=== PATIENT | female | born 1950 | race Caucasian/White ===

== ENCOUNTER → 2018-01-08 | Outpatient (CLI) | payer MEDICARE, OTHER ==
[~2018-01-08] MED LIST: ALANINE; ANAS1 PO; ASPI81EC PO; BYSTOLIC PO; CEPH500 PO; CHOL10002 PO; DILT120 PO; DOXY100 PO; ELIQUIS2.5 MG PO; ESTR.625 PO; HYDACE5 PO; IBRANCE125 MG; Keflex500 MG PO; LETR2.5 PO; LISHYD2012 PO; LISHYD2025 PO; LIVALO; LIVALO1 MG PO; LOVA20 PO; MELO7.5 PO; METF500 PO; NEBI5 PO; OLAN10 PO; OMEP20ER PO; OXYB5 PO; POTA10T PO; POTCIT5 PO; PRAV40 PO; TRAZ50 PO; VITAMIN D PO; Venlafaxine HCl75 MG PO; WARF5 PO; Zofran Odt4 MG SL
[2018-01-08 19:13] LABS: BASOPHILS PERCENT AUTO 0 % (0-2); EOSINOPHILS ABSOLUTE AUTO 0.01 K/mm3 (0.00-0.68); EOSINOPHILS PERCENT AUTO 0 % (0-6); Hematocrit 33.5 % (33.0-51.0); Hemoglobin 11.1 g/dL (11.5-16.0); IMMATURE GRAN ABSOLUTE AUTO 0.01 K/mm3 (0.00-0.10); IMMATURE GRAN PERCENT AUTO 0 % (0-1); LYMPHOCYTES ABSOLUTE AUTO 1.69 K/mm3 (0.84-5.20); LYMPHOCYTES PERCENT AUTO 49 % (21-46); MONOCYTES ABSOLUTE AUTO 0.58 K/mm3 (0.16-1.47); MONOCYTES PERCENT AUTO 17 % (4-13); Mean Corpuscular HGB 35.8 pg (26.0-34.0); Mean Corpuscular HGB Conc 33.1 g/dL (31.5-36.5); Mean Platelet Volume 10.2 fL (9.1-12.4); NEUTROPHILS ABSOLUTE AUTO 1.16 K/mm3 (1.96-9.15); NEUTROPHILS PERCENT AUTO 34 % (41-73); Platelet Count 208 K/mm3 (150-400); RDW Coefficient Variation 14.1 % (11.7-14.2); RDW Standard Deviation 56.3 fL (35.1-46.3); White Blood Cell Count 3.45 K/mm3 (4.00-11.30)
[2018-01-08 19:14] LABS: Mean Corpuscular Volume 108 fL (80-100)
[2018-01-08 19:21] LABS: Bun/Creatinine Ratio 10.9 (12.0-20.0); Calcium, Blood 8.5 mg/dL (8.5-10.1); Creatinine, Blood 1.01 mg/dL (0.40-1.00); Potassium, Blood 4.2 mmol/L (3.5-5.5)
== END | disposition home or self-care (01) ==
LOC: LAB SHORT 16:40 → LAB 16:40
PROVIDERS: Physician Assistant
DX: I48.2 Chronic atrial fibrillation (principal); I10 Essential (primary) hypertension
CPT/HCPCS: 80048; 85025

== ENCOUNTER 2018-05-17 18:39 | Inpatient (IN) | payer MEDICARE, OTHER ==
[~2018-05-17] VITALS: Ht 172.7 cm; Wt 88.0 kg
[~2018-05-17 18:39] MED LIST changes: +METF500C PO; -OMEP20ER PO; +OMEPRAZOLE MAGN20 MG PO
[2018-05-17 19:04] LABS: BASOPHILS PERCENT AUTO 0 % (0-2); EOSINOPHILS ABSOLUTE AUTO 0.01 K/mm3 (0.00-0.68); EOSINOPHILS PERCENT AUTO 0 % (0-6); Hematocrit 35.7 % (33.0-51.0); Hemoglobin 11.8 g/dL (11.5-16.0); IMMATURE GRAN ABSOLUTE AUTO 0.03 K/mm3 (0.00-0.10); IMMATURE GRAN PERCENT AUTO 1 % (0-1); LYMPHOCYTES ABSOLUTE AUTO 0.95 K/mm3 (0.84-5.20); LYMPHOCYTES PERCENT AUTO 15 % (21-46); MONOCYTES ABSOLUTE AUTO 1.08 K/mm3 (0.16-1.47); MONOCYTES PERCENT AUTO 17 % (4-13); Mean Corpuscular HGB 34.3 pg (26.0-34.0); Mean Corpuscular HGB Conc 33.1 g/dL (31.5-36.5); Mean Corpuscular Volume 104 fL (80-100); Mean Platelet Volume 10.8 fL (9.1-12.4); NEUTROPHILS ABSOLUTE AUTO 4.41 K/mm3 (1.96-9.15); NEUTROPHILS PERCENT AUTO 68 % (41-73); Platelet Count 141 K/mm3 (150-400); RDW Coefficient Variation 13.7 % (11.7-14.2); RDW Standard Deviation 52.9 fL (35.1-46.3); Red Blood Cell Count 3.44 M/mm3 (3.80-5.20); White Blood Cell Count 6.48 K/mm3 (4.00-11.30)
[2018-05-17 19:19] LABS: Alanine Aminotransfer (ALT/SGP 51 U/L (12-78); Albumin, Blood 3.6 g/dL (3.4-5.0); Albumin/Globulin Ratio 0.9 (0.8-1.8); Alk Phos 82 U/L (50-136); Anion Gap 10 mmol/L (6-16); Aspartate Aminotrans (AST/SGOT 116 U/L (12-37); Bilirubin, Total 0.5 mg/dL (0.1-1.0); Blood Urea Nitrogen 11 mg/dL (8-24); Bun/Creatinine Ratio 11.2 (12.0-20.0); CO2, Blood 21 mmol/L (21-32); Calcium, Blood 9.2 mg/dL (8.5-10.1); Chloride, Blood 106 mmol/L (98-108); Creatinine, Blood 0.98 mg/dL (0.40-1.00); Glomerular Filtration Rate >60 (60-); Glucose, Blood 116 mg/dL (70-99); Potassium, Blood 4.2 mmol/L (3.5-5.5); Sodium, Blood 137 mmol/L (136-145); Total Protein, Blood 7.6 g/dL (6.4-8.2); Troponin I 0.136 ng/mL (0.000-0.040)
[2018-05-17 21:47] LABS: Digoxin (Lanoxin) 0.75 ug/mL (0.80-2.00)
[2018-05-18 07:19] LABS: Hematocrit 34.6 % (33.0-51.0); Hemoglobin 11.2 g/dL (11.5-16.0); Mean Corpuscular HGB 34.3 pg (26.0-34.0); Mean Corpuscular HGB Conc 32.4 g/dL (31.5-36.5); Mean Corpuscular Volume 106 fL (80-100); Mean Platelet Volume 10.5 fL (9.1-12.4); Platelet Count 131 K/mm3 (150-400); RDW Coefficient Variation 13.7 % (11.7-14.2); RDW Standard Deviation 53.2 fL (35.1-46.3); Red Blood Cell Count 3.27 M/mm3 (3.80-5.20); White Blood Cell Count 5.34 K/mm3 (4.00-11.30)
[2018-05-18 07:30] LABS: Calcium, Blood 8.9 mg/dL (8.5-10.1); Potassium, Blood 4.6 mmol/L (3.5-5.5)
[2018-05-19] MEDS ORDERED: ASPI81CH PO (16:46)
== END 2018-05-19 18:48 | disposition home or self-care (01) | DRG 309 ==
LOC: ER 18:39 → PCU 18:40 → ER 18:40 → PCU 21:02 → MEDS 21:10 → ER 21:10 → PCU 22:04 → MEDS 22:04 → PCU 05-19 18:48
PROVIDERS: Emergency Medicine; Nurse Practitioner Acute Care
DX: I48.0 Paroxysmal atrial fibrillation (principal); C78.7 Secondary malignant neoplasm of liver and intrahepatic bile duct; E87.2 Acidosis; D69.6 Thrombocytopenia, unspecified; C50.919 Malignant neoplasm of unspecified site of unspecified female breast; K52.9 Noninfective gastroenteritis and colitis, unspecified; E11.9 Type 2 diabetes mellitus without complications; E03.9 Hypothyroidism, unspecified; I10 Essential (primary) hypertension; K21.9 Gastro-esophageal reflux disease without esophagitis; E78.5 Hyperlipidemia, unspecified; E78.00 Pure hypercholesterolemia, unspecified; F32.9 Major depressive disorder, single episode, unspecified; N32.81 Overactive bladder; N39.3 Stress incontinence (female) (male); G47.00 Insomnia, unspecified; Z85.3 Personal history of malignant neoplasm of breast; Z79.01 Long term (current) use of anticoagulants; Z79.84 Long term (current) use of oral hypoglycemic drugs; Z79.899 Other long term (current) drug therapy; Z88.8 Allergy status to other drugs, medicaments and biological substances
CPT/HCPCS: 36415; 71046; 78452; 80048; 80053; 80162; 82947; 83735; 83880; 84443; 84484; 85025; 85027; 85730; 93005; 93010; 93017; 93306; 96374; 99285-25; A9500; J0706; J1644; J2405; J2785; J7040

== ENCOUNTER → 2018-05-29 | Outpatient (CLI) | payer MEDICARE, OTHER ==
[~2018-05-29] MED LIST changes: +ASPI81CH PO; +AZIT500 PO; +DIGOX125 MCG PO; +EXEM25 PO; +FURO20 PO; +LIVALO4 MG PO; +Micro-K10 MEQ PO; +ONDA4ODT MM
== END ==
LOC: LAB SHORT 13:45 → LAB UCHC 13:45
DX: N39.0 Urinary tract infection, site not specified (principal)
CPT/HCPCS: 87077; 87086; 87186

== ENCOUNTER 2018-07-06 16:37 | Inpatient (IN) | payer MEDICARE, OTHER ==
[~2018-07-06] VITALS: Ht 172.7 cm; Wt 87.5 kg
[~2018-07-06 16:37] MED LIST changes: -AZIT500 PO; -FURO20 PO; -Micro-K10 MEQ PO
[2018-07-06 17:11] LABS: BASOPHILS PERCENT AUTO 0 % (0-2); EOSINOPHILS ABSOLUTE AUTO 0.01 K/mm3 (0.00-0.68); EOSINOPHILS PERCENT AUTO 0 % (0-6); Hematocrit 32.8 % (33.0-51.0); Hemoglobin 10.5 g/dL (11.5-16.0); IMMATURE GRAN ABSOLUTE AUTO 0.01 K/mm3 (0.00-0.10); IMMATURE GRAN PERCENT AUTO 0 % (0-1); LYMPHOCYTES ABSOLUTE AUTO 0.81 K/mm3 (0.84-5.20); LYMPHOCYTES PERCENT AUTO 13 % (21-46); MONOCYTES ABSOLUTE AUTO 0.83 K/mm3 (0.16-1.47); MONOCYTES PERCENT AUTO 13 % (4-13); Mean Corpuscular HGB 32.3 pg (26.0-34.0); Mean Corpuscular Volume 101 fL (80-100); Mean Platelet Volume 10.3 fL (9.1-12.4); NEUTROPHILS ABSOLUTE AUTO 4.59 K/mm3 (1.96-9.15); NEUTROPHILS PERCENT AUTO 73 % (41-73); Platelet Count 186 K/mm3 (150-400); RDW Coefficient Variation 13.5 % (11.7-14.2); RDW Standard Deviation 49.4 fL (35.1-46.3); Red Blood Cell Count 3.25 M/mm3 (3.80-5.20); White Blood Cell Count 6.25 K/mm3 (4.00-11.30)
[2018-07-06 17:35] LABS: Alanine Aminotransfer (ALT/SGP 48 U/L (12-78); Albumin, Blood 3.1 g/dL (3.4-5.0); Albumin/Globulin Ratio 0.9 (0.8-1.8); Alk Phos 95 U/L (50-136); Anion Gap 10 mmol/L (6-16); Aspartate Aminotrans (AST/SGOT 119 U/L (12-37); Bilirubin, Total 0.6 mg/dL (0.1-1.0); Blood Urea Nitrogen 9 mg/dL (8-24); Bun/Creatinine Ratio 10.4 (12.0-20.0); CO2, Blood 23 mmol/L (21-32); Calcium, Blood 8.1 mg/dL (8.5-10.1); Chloride, Blood 109 mmol/L (98-108); Creatinine, Blood 0.86 mg/dL (0.40-1.00); Globulin, Blood 3.6 g/dL (2.2-4.0); Glomerular Filtration Rate >60 (60-); Glucose, Blood 149 mg/dL (70-99); Potassium, Blood 3.5 mmol/L (3.5-5.5); Sodium, Blood 142 mmol/L (136-145); Total Protein, Blood 6.7 g/dL (6.4-8.2); Troponin I 0.025 ng/mL (0.000-0.040)
[2018-07-06 20:28] LABS: Thyroid Stimulating Hormone 1.74 uIU/mL (0.360-4.800)
[2018-07-06 20:30] LABS: Digoxin (Lanoxin) 0.59 ug/mL (0.80-2.00)
[2018-07-06 21:05] LABS: Percent Saturation 15.5 % (15.0-50.0)
[2018-07-06] MEDS ORDERED: OXYB5 PO (21:44)
--- NOTE | 2018-07-07 04:45 | NUR ---
NOC SHIFT SUMMARY THIS PATIENT WAS ADMITTED DURING THE NIGHT FOR HX OF BREAST CANCER WITH METS TO LIVER AND POSSIBLE PNEUMONIA. SHE HAS BEEN PLEASANT AND COOPERATIVE WITH CARE. AAOX4, RESP EVEN AND UNLABORED. APPEARS TO HAVE NO TROUBLE WALKING OR AMBULATING AROUND ROOM. WENT TO SLEEP SHORTLY AFTER MEDS WERE GIVEN AND HAS SLEPT RESTFULLY SINCE THEN. ERICH APPEARS IN NO ACUTE DISTRESS, WILL CONTINUE TO MONITOR.
[2018-07-07 05:07] LABS: BASOPHILS PERCENT AUTO 0 % (0-2); EOSINOPHILS ABSOLUTE AUTO 0.01 K/mm3 (0.00-0.68); EOSINOPHILS PERCENT AUTO 0 % (0-6); Hematocrit 31.2 % (33.0-51.0); IMMATURE GRAN ABSOLUTE AUTO 0.03 K/mm3 (0.00-0.10); IMMATURE GRAN PERCENT AUTO 1 % (0-1); LYMPHOCYTES ABSOLUTE AUTO 0.96 K/mm3 (0.84-5.20); LYMPHOCYTES PERCENT AUTO 15 % (21-46); MONOCYTES ABSOLUTE AUTO 0.97 K/mm3 (0.16-1.47); MONOCYTES PERCENT AUTO 15 % (4-13); Mean Corpuscular HGB 31.7 pg (26.0-34.0); Mean Corpuscular HGB Conc 32.1 g/dL (31.5-36.5); Mean Corpuscular Volume 99 fL (80-100); Mean Platelet Volume 10.8 fL (9.1-12.4); NEUTROPHILS ABSOLUTE AUTO 4.64 K/mm3 (1.96-9.15); NEUTROPHILS PERCENT AUTO 70 % (41-73); Platelet Count 186 K/mm3 (150-400); RDW Coefficient Variation 13.6 % (11.7-14.2); RDW Standard Deviation 48.9 fL (35.1-46.3); Red Blood Cell Count 3.15 M/mm3 (3.80-5.20); White Blood Cell Count 6.61 K/mm3 (4.00-11.30)
[2018-07-07 05:23] LABS: Bun/Creatinine Ratio 9.3 (12.0-20.0); Calcium, Blood 8.4 mg/dL (8.5-10.1); Creatinine, Blood 1.07 mg/dL (0.40-1.00); Potassium, Blood 3.9 mmol/L (3.5-5.5)
--- NOTE | 2018-07-07 09:54 | NUR ---
Echocardiogram completed.
--- NOTE | 2018-07-07 13:03 | NUR ---
PERMISSION FOR CARE PT GAVE PERMISSION FOR THIS ROOF BOLTER HELPER TO PROVIDE CARE ON 07/08/18.
--- NOTE | 2018-07-07 16:33 | NUR ---
SHIFT SUMMARY- PT AXO X4. PT DENIES PAIN. PT DENIES N/V. PT DENIES SOB. RESP E/U ON 3L O2 NC. NSR AT 79 PER PCU SENIOR DATA MODELER. PT INDEPENDENT IN THE ROOM. ECHO DONE THIS AM. NO OTHER SIGNIFICANT CHANGES THIS SHIFT.
[2018-07-08 05:46] LABS: Bun/Creatinine Ratio 12.2 (12.0-20.0); Calcium, Blood 8.7 mg/dL (8.5-10.1); Creatinine, Blood 1.15 mg/dL (0.40-1.00); Potassium, Blood 3.7 mmol/L (3.5-5.5)
--- NOTE | 2018-07-08 06:24 | NUR ---
NOC SHIFT SUMMARY GIL HAS BEEN PLEASANT AND COOPERATIVE WITH CARE THIS NIGHT. SHE HAS RESTED IN BED FOR THE WHOLE NIGHT EXCEPT WHEN SHE JUAN CARLOS TO USE THE RESTROOM. SHE IS CURRENLTY SLEEPING RESTULLY AND APPEARS IN NO ACUTE DISTRESS. WILL CONTINUE TO MONITOR.
[2018-07-08] MEDS ORDERED: AZIT500 PO (12:04)
[2018-07-08] MEDS ORDERED: Micro-K10 MEQ PO (12:04)
[2018-07-08] MEDS ORDERED: FURO20 PO (12:04)
--- NOTE | 2018-07-08 12:48 | NUR ---
SUMMARY/DISCHARGE PT DISCHARGED TO HOME, PT AND FRIEND VERBALIZED UNDERSTANDING OF DISCHARGE ORDERS, PT HAS BEEN PLEASANT AND COOPERATIVE WITH CARE, INDEP IN THE ROOM, PT TAKEN OUT SAFELY VIA WHEELCHAIR BY THE VOLUNTEER
== END 2018-07-08 12:54 | disposition home or self-care (01) | DRG 291 ==
LOC: ER 16:37 → MEDS 19:48 → ENPENDDIS 07-08 10:20 → MEDS 07-08 12:54
PROVIDERS: Emergency Medicine; Hospitalist; ADMIT Internal Medicine
DX: I50.31 Acute diastolic (congestive) heart failure (principal); J96.01 Acute respiratory failure with hypoxia; C78.7 Secondary malignant neoplasm of liver and intrahepatic bile duct; I48.0 Paroxysmal atrial fibrillation; E11.9 Type 2 diabetes mellitus without complications; E03.9 Hypothyroidism, unspecified; K21.9 Gastro-esophageal reflux disease without esophagitis; C50.919 Malignant neoplasm of unspecified site of unspecified female breast; J40 Bronchitis, not specified as acute or chronic; E78.5 Hyperlipidemia, unspecified; Z92.21 Personal history of antineoplastic chemotherapy; Z88.8 Allergy status to other drugs, medicaments and biological substances; Z79.84 Long term (current) use of oral hypoglycemic drugs; Z79.82 Long term (current) use of aspirin; Z79.899 Other long term (current) drug therapy
CPT/HCPCS: 36415; 71046; 71260; 80048; 80053; 80162; 82607; 82728; 82947; 83036; 83540; 83550; 83605; 83880; 84145; 84443; 84484; 85025; 87040; 93005; 93010; 93308; 93321; 96365-59; 96375-59; 99285-25; J0456; J0696; J1940; J7050; Q9967

== ENCOUNTER → 2018-09-30 | Outpatient (CLI) | payer MEDICARE, OTHER ==
[~2018-09-30] MED LIST changes: +AZIT500 PO; +FURO20 PO; +Micro-K10 MEQ PO
== END ==
LOC: LAB 19:42 → LAB SHORT 19:42
DX: R35.0 Frequency of micturition (principal)
CPT/HCPCS: 87086

== ENCOUNTER 2018-11-18 15:23 | Inpatient (IN) | payer MEDICARE, OTHER ==
[~2018-11-18] VITALS: Ht 172.7 cm; Wt 85.3 kg
[~2018-11-18 15:23] MED LIST changes: -DIGOX125 MCG PO; -ELIQUIS2.5 MG PO; -METF500C PO; -Micro-K10 MEQ PO; -OLAN10 PO; -OMEPRAZOLE MAGN20 MG PO; -TRAZ50 PO; -Venlafaxine HCl75 MG PO
[2018-11-18 16:56] LABS: Hematocrit 32.7 % (33.0-51.0); Hemoglobin 10.4 g/dL (11.5-16.0); Mean Corpuscular HGB 32.1 pg (26.0-34.0); Mean Corpuscular HGB Conc 31.8 g/dL (31.5-36.5); Mean Corpuscular Volume 101 fL (80-100); Mean Platelet Volume 10.3 fL (9.1-12.4); Platelet Count 214 K/mm3 (150-400); RDW Coefficient Variation 18.5 % (11.7-14.2); RDW Standard Deviation 68.8 fL (35.1-46.3); Red Blood Cell Count 3.24 M/mm3 (3.80-5.20); White Blood Cell Count 20.11 K/mm3 (4.00-11.30)
[2018-11-18 17:19] LABS: Alanine Aminotransfer (ALT/SGP 37 U/L (12-78); Albumin, Blood 3.4 g/dL (3.4-5.0); Alk Phos 104 U/L (50-136); Anion Gap 11 mmol/L (6-16); Aspartate Aminotrans (AST/SGOT 45 U/L (12-37); Bilirubin, Total 0.3 mg/dL (0.1-1.0); Blood Urea Nitrogen 21 mg/dL (8-24); Bun/Creatinine Ratio 20.6 (12.0-20.0); CO2, Blood 24 mmol/L (21-32); Calcium, Blood 9.6 mg/dL (8.5-10.1); Chloride, Blood 104 mmol/L (98-108); Creatinine, Blood 1.02 mg/dL (0.40-1.00); Globulin, Blood 3.4 g/dL (2.2-4.0); Glomerular Filtration Rate 58 (60-); Glucose, Blood 110 mg/dL (70-99); Potassium, Blood 4.3 mmol/L (3.5-5.5); Sodium, Blood 139 mmol/L (136-145); Total Protein, Blood 6.8 g/dL (6.4-8.2); Troponin I <0.015 ng/mL (0.000-0.040)
[2018-11-18 17:21] LABS: BAND PERCENT MAN 3 % (0-8); BASOPHILS PERCENT MAN 0 % (0-2); EOSINOPHILS PERCENT MAN 0 % (0-6); LYMPHOCYTES PERCENT MAN 9 % (21-46); MONOCYTES PERCENT MAN 5 % (4-13); NEUTROPHILS ABSOLUTE MAN 17.29 K/mm3 (1.96-9.15); SEG NEUTROPHILS PERCENT MAN 83 % (41-73); TOTAL CELLS COUNTED 100
[2018-11-18 17:59] LABS: Source, Urine Clean Catch
[2018-11-18 18:02] LABS: Bilirubin, Urine Neg (Neg); Blood, Urine 2+ (Neg); Glucose Qualitative, Urine Neg (Neg); Ketones, Urine Neg (Neg); Leukocyte Esterase, Urine 3+ (Neg); Nitrite, Urine Pos (Neg); Protein, Urine 1+ (Neg); Urobilinogen, Urine NORM (Normal)
[2018-11-18 18:16] LABS: Appearance, Urine Hazy (Clear); Color, Urine Yellow (P-Yellow)
[2018-11-18 18:21] LABS: White Blood Cells, Urine TNTC /hpf (0-5)
[2018-11-18 18:24] LABS: Squamous Epithelial Cells Mod /hpf (Few)
[2018-11-18 18:25] LABS: Bacteria Many /hpf
[2018-11-18 19:47] LABS: Digoxin (Lanoxin) 0.76 ug/mL (0.80-2.00)
--- NOTE | 2018-11-19 04:50 | NUR ---
SHIFT SUMMARY PT ADMITTED WITH SEPSIS SECONDARY TO UTI. ALERT AND ORIENTED, UP WITH SBA. TELEMETRY INTACT AND READS AFIB WITH PVC AT 79. IVF'S INFUSING PER PUMP WITHOUT DIFFICULTY. PT CONTINENT OF CLOUDY YELLOW URINE WITH A STRONG ODOR. NO OPEN SORES OR WOUNDS NOTED. PT USES CALL LIGHT APPROPRIATLEY. WILL CONTINUE TO MONITOR.
[2018-11-19 05:39] LABS: Hematocrit 30.1 % (33.0-51.0); Hemoglobin 9.5 g/dL (11.5-16.0); Mean Corpuscular HGB 31.5 pg (26.0-34.0); Mean Corpuscular HGB Conc 31.6 g/dL (31.5-36.5); Mean Corpuscular Volume 100 fL (80-100); Mean Platelet Volume 10.4 fL (9.1-12.4); Platelet Count 194 K/mm3 (150-400); RDW Coefficient Variation 18.3 % (11.7-14.2); RDW Standard Deviation 66.4 fL (35.1-46.3); Red Blood Cell Count 3.02 M/mm3 (3.80-5.20); White Blood Cell Count 14.32 K/mm3 (4.00-11.30)
[2018-11-19 05:58] LABS: Anion Gap 6 mmol/L (6-16); Blood Urea Nitrogen 19 mg/dL (8-24); Bun/Creatinine Ratio 19.4 (12.0-20.0); CO2, Blood 29 mmol/L (21-32); Calcium, Blood 9.3 mg/dL (8.5-10.1); Chloride, Blood 106 mmol/L (98-108); Creatinine, Blood 0.98 mg/dL (0.40-1.00); Glomerular Filtration Rate >60 (60-); Glucose, Blood 102 mg/dL (70-99); Magnesium, Blood 1.9 mg/dL (1.6-2.4); Potassium, Blood 3.9 mmol/L (3.5-5.5); Sodium, Blood 141 mmol/L (136-145)
[2018-11-19 06:10] LABS: BAND PERCENT MAN 7 % (0-8); BASOPHILS PERCENT MAN 0 % (0-2); EOSINOPHILS PERCENT MAN 0 % (0-6); LYMPHOCYTES ABSOLUTE MAN 2.43 K/mm3 (0.84-5.20); LYMPHOCYTES PERCENT MAN 17 % (21-46); MONOCYTES ABSOLUTE MAN 0.85 K/mm3 (0.16-1.47); MONOCYTES PERCENT MAN 6 % (4-13); NEUTROPHILS ABSOLUTE MAN 11.02 K/mm3 (1.96-9.15); SEG NEUTROPHILS PERCENT MAN 70 % (41-73); TOTAL CELLS COUNTED 100
[2018-11-19 12:10] LABS: Percent Saturation 29.8 % (15.0-50.0)
--- NOTE | 2018-11-19 16:48 | NUR ---
SUMMARY PT SITTING UP IN BED WATCHING TV, PT HAS BEEN PLEASANT AND COOPERATIVE WITH CARE T/O THE DAY, PT USES CALL LIGHT APPROPRIATELY AND IS A STANDBY ASSIST TO THE BATHROOM, PT HAS HAD A FRIEND COME IN TO VISIT, NO COMPLAINTS T/O THE DAY, VSS, NO ACUTE CHANGES, WILL CONT TO MONITOR
[2018-11-20 04:58] LABS: Hematocrit 30.7 % (33.0-51.0); Hemoglobin 9.7 g/dL (11.5-16.0); Mean Corpuscular HGB 31.9 pg (26.0-34.0); Mean Corpuscular HGB Conc 31.6 g/dL (31.5-36.5); Mean Corpuscular Volume 101 fL (80-100); Mean Platelet Volume 10.9 fL (9.1-12.4); NRBC ABSOLUTE 0.03 K/mm3 (0.00-0.02); NRBC Auto 0.2 /100 WBC (0.0-0.2); Platelet Count 203 K/mm3 (150-400); RDW Standard Deviation 67.1 fL (35.1-46.3); Red Blood Cell Count 3.04 M/mm3 (3.80-5.20)
--- NOTE | 2018-11-20 05:39 | NUR ---
SHIFT SUMMARY PT HAS HAD A GOOD NIGHT, SECOND ORDERED LITER OF FLUID INFUSED AND IV SALINE LOCKED. PT HAS HAD NO C/O'S DURING THE NIGHT. UP TO BATHROOM AND VOIDS IN LARGE AMOUNTS AT A TIME. NO ACUTE EVENTS NOTED DURING THE NIGHT.
[2018-11-20 05:44] LABS: Alanine Aminotransfer (ALT/SGP 32 U/L (12-78); Albumin/Globulin Ratio 0.9 (0.8-1.8); Alk Phos 111 U/L (50-136); Anion Gap 7 mmol/L (6-16); Aspartate Aminotrans (AST/SGOT 43 U/L (12-37); Bilirubin, Total 0.4 mg/dL (0.1-1.0); Blood Urea Nitrogen 14 mg/dL (8-24); Bun/Creatinine Ratio 15.3 (12.0-20.0); CO2, Blood 26 mmol/L (21-32); Chloride, Blood 109 mmol/L (98-108); Creatinine, Blood 0.92 mg/dL (0.40-1.00); Globulin, Blood 3.2 g/dL (2.2-4.0); Glomerular Filtration Rate >60 (60-); Glucose, Blood 117 mg/dL (70-99); Potassium, Blood 4.3 mmol/L (3.5-5.5); Sodium, Blood 142 mmol/L (136-145); Total Protein, Blood 6.2 g/dL (6.4-8.2)
[2018-11-20 05:50] LABS: BAND PERCENT MAN 9 % (0-8); BASOPHILS PERCENT MAN 0 % (0-2); EOSINOPHILS PERCENT MAN 0 % (0-6); LYMPHOCYTES ABSOLUTE MAN 2.67 K/mm3 (0.84-5.20); LYMPHOCYTES PERCENT MAN 16 % (21-46); METAMYELOCYTE ABSOLUTE MAN 0.33 K/mm3 (0.00-0.00); METAMYELOCYTE PERCENT MAN 2 % (0-0); MONOCYTES ABSOLUTE MAN 0.83 K/mm3 (0.16-1.47); MONOCYTES PERCENT MAN 5 % (4-13); NEUTROPHILS ABSOLUTE MAN 12.85 K/mm3 (1.96-9.15); SEG NEUTROPHILS PERCENT MAN 68 % (41-73); TOTAL CELLS COUNTED 100
[2018-11-20] MEDS ORDERED: Amoxicillin500 MG PO (13:42)
--- NOTE | 2018-11-20 14:37 | NUR ---
SUMMARY/DISCHARGE PT DISCHARGED TO HOME, PT VERBALIZED UNDERSTANDING OF DISCHARGE INSTRUCTIONS REGARDING MEDS AND FOLLOW UP APPOINTMENT, PT TAKEN OUT SAFELY VIA WHEELCHAIR
== END 2018-11-20 14:53 | disposition home or self-care (01) | DRG 872 ==
LOC: ER 15:23 → MEDS 19:06
PROVIDERS: Internal Medicine; Nurse Practitioner Acute Care; Physician Assistant; ADMIT Internal Medicine
DX: A41.9 Sepsis, unspecified organism (principal); N39.0 Urinary tract infection, site not specified; I50.32 Chronic diastolic (congestive) heart failure; C78.7 Secondary malignant neoplasm of liver and intrahepatic bile duct; I48.91 Unspecified atrial fibrillation; C50.919 Malignant neoplasm of unspecified site of unspecified female breast; I11.0 Hypertensive heart disease with heart failure; K21.9 Gastro-esophageal reflux disease without esophagitis; D64.81 Anemia due to antineoplastic chemotherapy; E03.9 Hypothyroidism, unspecified; E11.9 Type 2 diabetes mellitus without complications; E78.5 Hyperlipidemia, unspecified; F32.9 Major depressive disorder, single episode, unspecified; F51.04 Psychophysiologic insomnia; I48.0 Paroxysmal atrial fibrillation; B96.20 Unspecified Escherichia coli [E. coli] as the cause of diseases classified elsewhere; Z79.01 Long term (current) use of anticoagulants; E86.0 Dehydration; R65.20 Severe sepsis without septic shock
CPT/HCPCS: 36415; 36416; 71046; 80048; 80053; 80162; 81001; 82728; 82947; 83540; 83550; 83605; 83735; 83880; 84484; 85025; 87040; 87077; 87086; 87186; 93005; 93010; 96374; 99285-25; J0696; J7030; J7120

== ENCOUNTER 2018-12-27 10:27 | Emergency (ER) | payer MEDICARE, OTHER ==
[~2018-12-27] VITALS: Ht 167.6 cm; Wt 90.7 kg
[~2018-12-27 10:27] MED LIST changes: +Amoxicillin500 MG PO
[2018-12-27 10:54] LABS: Hematocrit 35.5 % (33.0-51.0); Hemoglobin 11.5 g/dL (11.5-16.0); Mean Corpuscular HGB 33.6 pg (26.0-34.0); Mean Corpuscular HGB Conc 32.4 g/dL (31.5-36.5); Mean Corpuscular Volume 104 fL (80-100); Mean Platelet Volume 10.9 fL (9.1-12.4); Platelet Count 200 K/mm3 (150-400); RDW Coefficient Variation 17.2 % (11.7-14.2); RDW Standard Deviation 65.4 fL (35.1-46.3); Red Blood Cell Count 3.42 M/mm3 (3.80-5.20); White Blood Cell Count 47.09 K/mm3 (4.00-11.30)
[2018-12-27 11:12] LABS: BASOPHILS PERCENT MAN 0 % (0-2); EOSINOPHILS PERCENT MAN 0 % (0-6); LYMPHOCYTES ABSOLUTE MAN 0.94 K/mm3 (0.84-5.20); LYMPHOCYTES PERCENT MAN 2 % (21-46); MONOCYTES ABSOLUTE MAN 0.94 K/mm3 (0.16-1.47); MONOCYTES PERCENT MAN 2 % (4-13); SEG NEUTROPHILS PERCENT MAN 96 % (41-73); TOTAL CELLS COUNTED 100
[2018-12-27 11:20] LABS: Alanine Aminotransfer (ALT/SGP 40 U/L (12-78); Albumin, Blood 3.5 g/dL (3.4-5.0); Albumin/Globulin Ratio 0.9 (0.8-1.8); Alk Phos 116 U/L (50-136); Anion Gap 11 mmol/L (6-16); Aspartate Aminotrans (AST/SGOT 68 U/L (12-37); Bilirubin, Total 0.9 mg/dL (0.1-1.0); Blood Urea Nitrogen 18 mg/dL (8-24); Bun/Creatinine Ratio 18.4 (12.0-20.0); CO2, Blood 23 mmol/L (21-32); Calcium, Blood 10.2 mg/dL (8.5-10.1); Chloride, Blood 99 mmol/L (98-108); Creatinine, Blood 0.98 mg/dL (0.40-1.00); Globulin, Blood 3.7 g/dL (2.2-4.0); Glomerular Filtration Rate >60 (60-); Glucose, Blood 166 mg/dL (70-99); Magnesium, Blood 1.8 mg/dL (1.6-2.4); Potassium, Blood 4.1 mmol/L (3.5-5.5); Sodium, Blood 133 mmol/L (136-145); Total Protein, Blood 7.2 g/dL (6.4-8.2); Troponin I <0.015 ng/mL (0.000-0.040)
== END 2018-12-27 12:59 | disposition home or self-care (01) ==
LOC: ER 10:27
PROVIDERS: Emergency Medicine
DX: I48.91 Unspecified atrial fibrillation (principal); E03.9 Hypothyroidism, unspecified; I10 Essential (primary) hypertension; E78.5 Hyperlipidemia, unspecified; K21.9 Gastro-esophageal reflux disease without esophagitis; E11.9 Type 2 diabetes mellitus without complications; Z79.84 Long term (current) use of oral hypoglycemic drugs; Z79.899 Other long term (current) drug therapy
CPT/HCPCS: 71046; 80053; 83735; 83880; 84484; 85025; 93005; 93010; 96374; 99284-25

== ENCOUNTER → 2019-01-07 | Outpatient (CLI) | payer MEDICARE, OTHER ==
[~2019-01-07] MED LIST changes: +Anti-Diarrheal2 MG PO; +BISA5EC PO; +CALCITONIN; +DIGOX125 MCG PO; +DOCU100 PO; +ELIQUIS5 MG PO; +FAMO20 PO; +GABA100 PO; +GABA300 PO; +MIRALAX17 GM PO; +OLAN10 PO; +OMEPRAZOLE MAGN20 MG PO; +POTCHL20ER PO; +PRED5 PO; +SENN187 PO; +TRAZ100 PO; +Tylenol325 MG PO; +VENL75ER PO
[2019-01-07 15:34] LABS: BASOPHILS ABSOLUTE AUTO 0.02 K/mm3 (0.00-0.23); BASOPHILS PERCENT AUTO 0 % (0-2); EOSINOPHILS ABSOLUTE AUTO 0.01 K/mm3 (0.00-0.68); EOSINOPHILS PERCENT AUTO 0 % (0-6); Hemoglobin 11.4 g/dL (11.5-16.0); IMMATURE GRAN ABSOLUTE AUTO 0.54 K/mm3 (0.00-0.10); IMMATURE GRAN PERCENT AUTO 3 % (0-1); LYMPHOCYTES ABSOLUTE AUTO 1.41 K/mm3 (0.84-5.20); LYMPHOCYTES PERCENT AUTO 8 % (21-46); MONOCYTES ABSOLUTE AUTO 1.61 K/mm3 (0.16-1.47); MONOCYTES PERCENT AUTO 9 % (4-13); Mean Corpuscular HGB 33.9 pg (26.0-34.0); Mean Corpuscular HGB Conc 32.6 g/dL (31.5-36.5); Mean Corpuscular Volume 104 fL (80-100); Mean Platelet Volume 11.2 fL (9.1-12.4); NEUTROPHILS ABSOLUTE AUTO 15.07 K/mm3 (1.96-9.15); NEUTROPHILS PERCENT AUTO 81 % (41-73); NRBC ABSOLUTE 0.04 K/mm3 (0.00-0.02); NRBC Auto 0.2 /100 WBC (0.0-0.2); Platelet Count 263 K/mm3 (150-400); RDW Standard Deviation 64.5 fL (35.1-46.3); Red Blood Cell Count 3.36 M/mm3 (3.80-5.20); White Blood Cell Count 18.66 K/mm3 (4.00-11.30)
[2019-01-07 15:57] LABS: Alanine Aminotransfer (ALT/SGP 41 U/L (12-78); Albumin, Blood 3.6 g/dL (3.4-5.0); Albumin/Globulin Ratio 0.9 (0.8-1.8); Alk Phos 118 U/L (50-136); Anion Gap 11 mmol/L (6-16); Aspartate Aminotrans (AST/SGOT 88 U/L (12-37); Bilirubin, Total 0.6 mg/dL (0.1-1.0); Blood Urea Nitrogen 16 mg/dL (8-24); Bun/Creatinine Ratio 16.4 (12.0-20.0); CO2, Blood 23 mmol/L (21-32); Calcium, Blood 11.5 mg/dL (8.5-10.1); Chloride, Blood 101 mmol/L (98-108); Creatinine, Blood 0.98 mg/dL (0.40-1.00); Globulin, Blood 3.9 g/dL (2.2-4.0); Glomerular Filtration Rate >60 (60-); Glucose, Blood 134 mg/dL (70-99); Potassium, Blood 4.9 mmol/L (3.5-5.5); Sodium, Blood 135 mmol/L (136-145); Total Protein, Blood 7.5 g/dL (6.4-8.2)
== END | disposition home or self-care (01) ==
LOC: LAB SHORT 14:44 → LAB 14:44
PROVIDERS: Internal Medicine Hematology & Oncology
DX: C50.919 Malignant neoplasm of unspecified site of unspecified female breast (principal)
CPT/HCPCS: 80053; 85025

== ENCOUNTER 2019-01-13 11:12 | Observation (INO) | payer MEDICARE, OTHER ==
[~2019-01-13] VITALS: Ht 172.7 cm; Wt 83.9 kg
[~2019-01-13 11:12] MED LIST changes: -Anti-Diarrheal2 MG PO; -BISA5EC PO; -CALCITONIN; -DIGOX125 MCG PO; -DOCU100 PO; -ELIQUIS5 MG PO; -FAMO20 PO; -GABA100 PO; -GABA300 PO; -MIRALAX17 GM PO; -OLAN10 PO; -OMEPRAZOLE MAGN20 MG PO; -POTCHL20ER PO; -PRED5 PO; -SENN187 PO; -TRAZ100 PO; -Tylenol325 MG PO; -VENL75ER PO
[2019-01-13 11:57] LABS: BASOPHILS ABSOLUTE AUTO 0.01 K/mm3 (0.00-0.23); BASOPHILS PERCENT AUTO 0 % (0-2); EOSINOPHILS ABSOLUTE AUTO 0.01 K/mm3 (0.00-0.68); EOSINOPHILS PERCENT AUTO 0 % (0-6); Hematocrit 32.3 % (33.0-51.0); Hemoglobin 10.4 g/dL (11.5-16.0); IMMATURE GRAN ABSOLUTE AUTO 0.06 K/mm3 (0.00-0.10); IMMATURE GRAN PERCENT AUTO 1 % (0-1); LYMPHOCYTES ABSOLUTE AUTO 1.19 K/mm3 (0.84-5.20); LYMPHOCYTES PERCENT AUTO 13 % (21-46); MONOCYTES ABSOLUTE AUTO 1.41 K/mm3 (0.16-1.47); MONOCYTES PERCENT AUTO 16 % (4-13); Mean Corpuscular HGB 33.4 pg (26.0-34.0); Mean Corpuscular HGB Conc 32.2 g/dL (31.5-36.5); Mean Corpuscular Volume 104 fL (80-100); Mean Platelet Volume 9.9 fL (9.1-12.4); NEUTROPHILS ABSOLUTE AUTO 6.18 K/mm3 (1.96-9.15); NEUTROPHILS PERCENT AUTO 70 % (41-73); Platelet Count 227 K/mm3 (150-400); RDW Coefficient Variation 17.2 % (11.7-14.2); RDW Standard Deviation 65.4 fL (35.1-46.3); Red Blood Cell Count 3.11 M/mm3 (3.80-5.20); White Blood Cell Count 8.86 K/mm3 (4.00-11.30)
[2019-01-13 12:18] LABS: Albumin, Blood 3.4 g/dL (3.4-5.0); Bilirubin, Total 0.5 mg/dL (0.1-1.0); Bun/Creatinine Ratio 12.9 (12.0-20.0); Calcium, Blood 12.8 mg/dL (8.5-10.1); Creatinine, Blood 1.16 mg/dL (0.40-1.00); Globulin, Blood 3.3 g/dL (2.2-4.0); Total Protein, Blood 6.7 g/dL (6.4-8.2)
[2019-01-13] MEDS ORDERED: OMEPRAZOLE MAGN20 MG PO (14:22)
[2019-01-13] MEDS ORDERED: GABA100 PO (14:39)
[2019-01-13 16:16] LABS: Albumin, Blood 3.5 g/dL (3.4-5.0); Anion Gap 8 mmol/L (6-16); Blood Urea Nitrogen 15 mg/dL (8-24); Bun/Creatinine Ratio 12.6 (12.0-20.0); CO2, Blood 22 mmol/L (21-32); Calcium, Blood 13.1 mg/dL (8.5-10.1); Chloride, Blood 104 mmol/L (98-108); Creatinine, Blood 1.19 mg/dL (0.40-1.00); Glomerular Filtration Rate 48 (60-); Glucose, Blood 122 mg/dL (70-99); Phosphorus, Blood 2.8 mg/dL (2.5-4.9); Sodium, Blood 134 mmol/L (136-145)
--- NOTE | 2019-01-13 17:32 | NUR ---
PT HAS BEEN SETTLED INTO ROOM. PT IS AOX4 AND COOPERATIVE OF CARE. PT IS A STANDBY ASSIST. STATES SHE HAS BEEN FEELING WEAK IN HER LEGS FOR THE LAST TWO DAYS. PT RESTING IN BED AT THIS TIME AND DENIES ANY PAIN WILL CONTINUE TO MONITOR.
--- NOTE | 2019-01-14 03:52 | NUR ---
SHIFT SUMMARY: 68 Y/O FEMALE RESTED COMFORTABLY ALL SHIFT, DENIES PAIN OR NAUSEA, TELEMETRY REFLECTS A-FIB WITH HEART RATE 64, ABLE TRANSFER AND AMBULATE TO BATHROOM VIA WALKER WITH GAIT SLOW AND STEADY, ALERT AND ORIENTED X 4, DENIES SOB, BED LOW POSITION, CALL LIGHT AT SIDE.
[2019-01-14 04:39] LABS: BASOPHILS ABSOLUTE AUTO 0.01 K/mm3 (0.00-0.23); BASOPHILS PERCENT AUTO 0 % (0-2); EOSINOPHILS PERCENT AUTO 0 % (0-6); Hematocrit 30.2 % (33.0-51.0); Hemoglobin 9.6 g/dL (11.5-16.0); IMMATURE GRAN ABSOLUTE AUTO 0.04 K/mm3 (0.00-0.10); IMMATURE GRAN PERCENT AUTO 0 % (0-1); LYMPHOCYTES ABSOLUTE AUTO 0.47 K/mm3 (0.84-5.20); LYMPHOCYTES PERCENT AUTO 4 % (21-46); MONOCYTES ABSOLUTE AUTO 1.23 K/mm3 (0.16-1.47); MONOCYTES PERCENT AUTO 9 % (4-13); Mean Corpuscular HGB 33.8 pg (26.0-34.0); Mean Corpuscular HGB Conc 31.8 g/dL (31.5-36.5); Mean Corpuscular Volume 106 fL (80-100); Mean Platelet Volume 9.7 fL (9.1-12.4); NEUTROPHILS ABSOLUTE AUTO 11.37 K/mm3 (1.96-9.15); NEUTROPHILS PERCENT AUTO 87 % (41-73); Platelet Count 208 K/mm3 (150-400); RDW Coefficient Variation 17.2 % (11.7-14.2); RDW Standard Deviation 66.6 fL (35.1-46.3); Red Blood Cell Count 2.84 M/mm3 (3.80-5.20); White Blood Cell Count 13.12 K/mm3 (4.00-11.30)
[2019-01-14 04:57] LABS: Bun/Creatinine Ratio 11.9 (12.0-20.0); Creatinine, Blood 1.01 mg/dL (0.40-1.00); Magnesium, Blood 1.6 mg/dL (1.6-2.4); Potassium, Blood 3.8 mmol/L (3.5-5.5)
[2019-01-14 05:49] LABS: Calcium, Blood 10.9 mg/dL (8.5-10.1)
--- NOTE | 2019-01-14 15:15 | NUR ---
PT DICHARGED AOX4 AND ABLE TO AMBULATE AROUND IN ROOM. NO PAIN NOTED. PT HAD ALL PAPERS REVIEWED AND EDUCATIONAL MATERIAL FAXED TO [facility] IN [place]. APPOINTMENT SCHEDULED WITH PCP 01/19/19 @ 1000. NO DISTRESS NOTED ESCORTED VIA WHEELCHAIR BY AID.
== END 2019-01-14 14:07 | disposition home health service (06) ==
LOC: ER 11:12 → MEDS 11:13 → ENPENDDIS 01-14 11:30 → MEDS 01-14 14:07
PROVIDERS: Emergency Medicine; ADMIT Family Medicine
DX: E83.52 Hypercalcemia (principal); N17.9 Acute kidney failure, unspecified; E03.9 Hypothyroidism, unspecified; K21.9 Gastro-esophageal reflux disease without esophagitis; E11.9 Type 2 diabetes mellitus without complications; E78.5 Hyperlipidemia, unspecified; C78.7 Secondary malignant neoplasm of liver and intrahepatic bile duct; C50.919 Malignant neoplasm of unspecified site of unspecified female breast; I48.0 Paroxysmal atrial fibrillation; I11.0 Hypertensive heart disease with heart failure; I50.9 Heart failure, unspecified; E66.9 Obesity, unspecified; Z79.01 Long term (current) use of anticoagulants; Z88.8 Allergy status to other drugs, medicaments and biological substances; Z79.84 Long term (current) use of oral hypoglycemic drugs; Z79.899 Other long term (current) drug therapy
CPT/HCPCS: 36415; 80048; 80053; 80069; 82330; 82947; 83735; 84443; 85025; 93005; 93010; 96360; 96361; 96372; 96374; 96375; 96376; 99284-25; G0378; J0630; J1940; J3489; J7030

== ENCOUNTER 2019-01-16 12:34 | Observation (INO) | payer MEDICARE, OTHER ==
[~2019-01-16] VITALS: Ht 172.7 cm; Wt 88.4 kg
[~2019-01-16 12:34] MED LIST changes: +GABA100 PO; +OMEPRAZOLE MAGN20 MG PO
[2019-01-16 13:03] LABS: BASOPHILS ABSOLUTE AUTO 0.01 K/mm3 (0.00-0.23); BASOPHILS PERCENT AUTO 0 % (0-2); EOSINOPHILS PERCENT AUTO 0 % (0-6); Hematocrit 30.4 % (33.0-51.0); Hemoglobin 9.5 g/dL (11.5-16.0); IMMATURE GRAN ABSOLUTE AUTO 0.08 K/mm3 (0.00-0.10); IMMATURE GRAN PERCENT AUTO 1 % (0-1); LYMPHOCYTES PERCENT AUTO 4 % (21-46); MONOCYTES ABSOLUTE AUTO 2.61 K/mm3 (0.16-1.47); MONOCYTES PERCENT AUTO 15 % (4-13); Mean Corpuscular HGB 33.2 pg (26.0-34.0); Mean Corpuscular HGB Conc 31.3 g/dL (31.5-36.5); Mean Corpuscular Volume 106 fL (80-100); Mean Platelet Volume 10.2 fL (9.1-12.4); NEUTROPHILS ABSOLUTE AUTO 14.24 K/mm3 (1.96-9.15); NEUTROPHILS PERCENT AUTO 81 % (41-73); Platelet Count 201 K/mm3 (150-400); RDW Coefficient Variation 17.4 % (11.7-14.2); Red Blood Cell Count 2.86 M/mm3 (3.80-5.20); White Blood Cell Count 17.64 K/mm3 (4.00-11.30)
[2019-01-16 13:17] LABS: Alanine Aminotransfer (ALT/SGP 80 U/L (12-78); Albumin, Blood 3.2 g/dL (3.4-5.0); Albumin/Globulin Ratio 0.9 (0.8-1.8); Alk Phos 99 U/L (50-136); Anion Gap 10 mmol/L (6-16); Aspartate Aminotrans (AST/SGOT 104 U/L (12-37); Bilirubin, Total 0.9 mg/dL (0.1-1.0); Blood Urea Nitrogen 10 mg/dL (8-24); Bun/Creatinine Ratio 12.5 (12.0-20.0); CO2, Blood 23 mmol/L (21-32); Chloride, Blood 104 mmol/L (98-108); Globulin, Blood 3.7 g/dL (2.2-4.0); Glomerular Filtration Rate >60 (60-); Glucose, Blood 151 mg/dL (70-99); Potassium, Blood 4.2 mmol/L (3.5-5.5); Sodium, Blood 137 mmol/L (136-145); Total Protein, Blood 6.9 g/dL (6.4-8.2); Troponin I 0.027 ng/mL (0.000-0.040)
[2019-01-16 14:19] LABS: Source, Urine Catheter
[2019-01-16 14:26] LABS: Bilirubin, Urine Neg (Neg); Blood, Urine 2+ (Neg); Glucose Qualitative, Urine Neg (Neg); Ketones, Urine Neg (Neg); Leukocyte Esterase, Urine Neg (Neg); Nitrite, Urine Neg (Neg); Protein, Urine Neg (Neg); Specific Gravity, Urine 1.015 (1.003-1.022); Urobilinogen, Urine NORM (Normal)
[2019-01-16 14:32] LABS: Appearance, Urine Clear (Clear); Color, Urine Yellow (P-Yellow)
[2019-01-16 14:33] LABS: Bacteria Rare /hpf; Red Blood Cells, Urine 0-2 /hpf (0-2); Squamous Epithelial Cells Many /hpf (Few); White Blood Cells, Urine 0-2 /hpf (0-5)
[2019-01-16] MEDS ORDERED: DIGOX125 MCG PO (18:27)
[2019-01-16] MEDS ORDERED: ELIQUIS5 MG PO (18:27)
[2019-01-16] MEDS ORDERED: METF500 PO (18:28)
[2019-01-16] MEDS ORDERED: PRED5 PO (18:28)
[2019-01-16] MEDS ORDERED: VENL75ER PO (18:40)
[2019-01-16] MEDS ORDERED: OLAN10 PO (18:41)
[2019-01-16] MEDS ORDERED: TRAZ100 PO (18:41)
[2019-01-16] MEDS ORDERED: POTCHL20ER PO (18:41)
[2019-01-16] MEDS ORDERED: OXYB5 PO (18:41)
[2019-01-16] MEDS ORDERED: NEBI5 PO (18:42)
[2019-01-16] MEDS ORDERED: FURO20 PO (18:42)
[2019-01-16] MEDS ORDERED: EXEM25 PO (18:42)
[2019-01-16] MEDS ORDERED: GABA300 PO (18:42)
[2019-01-16] MEDS ORDERED: Tylenol325 MG PO (18:43)
[2019-01-16] MEDS ORDERED: Anti-Diarrheal2 MG PO (18:43)
[2019-01-16] MEDS ORDERED: CALCITONIN (18:44)
[2019-01-16] MEDS ORDERED: BISA5EC PO (18:44)
[2019-01-16] MEDS ORDERED: FAMO20 PO (18:44)
[2019-01-16] MEDS ORDERED: DOCU100 PO (18:44)
[2019-01-16] MEDS ORDERED: MIRALAX17 GM PO (18:45)
[2019-01-16] MEDS ORDERED: SENN187 PO (18:45)
[2019-01-16] MEDS ORDERED: ONDA4ODT MM (18:45)
[2019-01-17 04:43] LABS: BASOPHILS ABSOLUTE AUTO 0.01 K/mm3 (0.00-0.23); BASOPHILS PERCENT AUTO 0 % (0-2); EOSINOPHILS ABSOLUTE AUTO 0.01 K/mm3 (0.00-0.68); EOSINOPHILS PERCENT AUTO 0 % (0-6); Hematocrit 27.2 % (33.0-51.0); Hemoglobin 8.7 g/dL (11.5-16.0); IMMATURE GRAN ABSOLUTE AUTO 0.06 K/mm3 (0.00-0.10); IMMATURE GRAN PERCENT AUTO 1 % (0-1); LYMPHOCYTES ABSOLUTE AUTO 1.22 K/mm3 (0.84-5.20); LYMPHOCYTES PERCENT AUTO 10 % (21-46); MONOCYTES ABSOLUTE AUTO 2.07 K/mm3 (0.16-1.47); MONOCYTES PERCENT AUTO 17 % (4-13); Mean Corpuscular HGB 34.3 pg (26.0-34.0); Mean Corpuscular Volume 107 fL (80-100); Mean Platelet Volume 10.7 fL (9.1-12.4); NEUTROPHILS ABSOLUTE AUTO 8.68 K/mm3 (1.96-9.15); NEUTROPHILS PERCENT AUTO 72 % (41-73); Platelet Count 182 K/mm3 (150-400); RDW Coefficient Variation 17.6 % (11.7-14.2); RDW Standard Deviation 68.5 fL (35.1-46.3); Red Blood Cell Count 2.54 M/mm3 (3.80-5.20); White Blood Cell Count 12.05 K/mm3 (4.00-11.30)
[2019-01-17 05:07] LABS: Anion Gap 7 mmol/L (6-16); Blood Urea Nitrogen 14 mg/dL (8-24); Bun/Creatinine Ratio 19.1 (12.0-20.0); CO2, Blood 24 mmol/L (21-32); Calcium, Blood 9.9 mg/dL (8.5-10.1); Chloride, Blood 105 mmol/L (98-108); Creatinine, Blood 0.73 mg/dL (0.40-1.00); Glomerular Filtration Rate >60 (60-); Glucose, Blood 128 mg/dL (70-99); Potassium, Blood 3.9 mmol/L (3.5-5.5); Sodium, Blood 136 mmol/L (136-145)
--- NOTE | 2019-01-17 05:58 | NUR ---
SHIFT SUMMARY PT ARRIVED TO ROOM APPROX 2014. SLURRED SPEECH SLOW TO RESPOND. SBA TO BA. NO C/O PAIN. CALL LIGHT IN REACH.
--- NOTE | 2019-01-17 18:35 | NUR ---
SHIFT SUMMARY- PT ALERT AND ORIENTED, SBA FOR SAFETY. PT HAS UPPER BODY WEAKNESS AND SLURRED SPEACH NO ONE SIDE DEFICITE NOTED AT THIS TIME. PT LEG STRENGTH SEEMS TO BE GOOD AT THIS TIME. PT IS ABLE TO AMBULATE TO THE BATHROOM EASILY WITH NO NOTED DIFFICULTY OR SOB, NO INCREASED PAIN OR DISCOMFORT NOTED AFTER ACTIVITY. PT DENIES ANY PAIN T/O THE SHIFT. PT CALLS APPROPRIATELY. PT CURRENTLY SITTING UP IN HER CHAIR WITH THE CALL LIGHT IN REACH.
--- NOTE | 2019-01-18 04:24 | NUR ---
SHIFT SUMMARY PT HAD SOME DISCOMFORT BEGINNING OF SHIFT. PT TX PER EMAR WITH GOOD RELIEF. PT HAS SLEPT T/O SHIFT W/O FURTHER COMPLAINTS. PT CURRENTLY SLEEPING AND BREATHING EASY. CALL LIGHT IN REACH.
--- NOTE | 2019-01-18 07:32 | NUR ---
ASSUMED CARE OF PT- PT ALERT AND ORIENTED. PT IN BED SLEEPING WOKE TO STAFF VOICES AND PARTICIPATED IN BEDSIDE REPORT, COMPLETED WITH NIGHT RN VJ. PT SLEPT THROUGH THE NIGHT PER REPORT. COLOR OF PT CHEEKS APEAR MORE PINK AND PT EYES SEEM BRIGHTER TODAY WHEN COMPARED TO PREVIOUS.
--- NOTE | 2019-01-18 10:16 | NUR ---
ATTEMPTED TO SEE NUMEROUS TIMES THIS AM. PT ON PHONE IN ROOM EACH TIME. WILL TRY AGAIN THIS AFTERNOON.
--- NOTE | 2019-01-18 17:47 | NUR ---
SHIFT SUMMARY- PT ALERT AND ORIENTED. PT BECAME VERY SAD THIS EVENING AND BEGAN TO TEAR A LITTLE, SHE SAID SHE WAS FEELING "A LITTLE DEPRESSED" PT STATED SHE JUST THOUGHT THAT SHE WOULD BE DOING BETTER BY NOW. ASSISTED PT TO SIT IN HER CHAIR AND SET UP DINNER. SAT WITH HER FOR A BIT TO TRY TO CHEER HER UP. WENT TO THE KITCHEN TO RETRIEVE CHOCOLATE ICE CREAM, PT STATED THIS WAS HER FAVORITE ICE CREAM. PT CURRENTLY SITTING UP IN A CHAIR ENJOYING SOME CHOCOLATE ICE CREAM, SHE SEEMS A LITTLE MORE CHEARFUL. NO OTHER ACUTE CHANGES T/O THE SHIFT.
--- NOTE | 2019-01-19 05:21 | NUR ---
SHIFT SUMMARY PT HAD SOME FOOT PAIN BEGINNING OF SHIFT. PT TX PER EMAR WITH GOOD RELIEF. PT HAS SLEPT VERY WELL T/O SHIFT. PT CURRENTLY SLEEPING IN NO DISTRESS. CALL LIGHT IN REACH.
--- NOTE | 2019-01-19 12:30 | NUR ---
PT DISCHARGED THE PT VERBALIZED UNDERSTANDING OF THE DC ORDERS, AN ATTEMPT TO MAKE A FOLLOW UP APPOINTMENT WAS MADE TO [facility], THEY WILL CALL TO SCHEDULE WITH THE PT, THE WAS TRANSFERED VIA WHEELCHAIR A/OX3, APPEARED TO BE BREATHING EASILY ON RA, PRESCRIPTIONS FAXED TO [facility] REQUESTED, THE PT WAS ACCOMPANIED BY HER FRIEND
--- NOTE | 2019-01-19 14:45 | NUR ---
[facility] intial note: Lisbeth was alone in room and being discharged this afternoon. She is very sweet and smiles easily. She is a bit slow to respond. She tells me that she beleives her cancer is being cured through chemo. "Last CT scan showed a 50% shrinkage." She is very happy about this. She is looking forward to her next CT scan later this week and expects ther tumor "to be gone." She does not have any family locally, but has good friends and neighbors who help out when they can. Lisbeth's biggest concern is her increased need for help with ADLs. She is fearful of losing her independance and states she was hesitant to accept Home Health. She appears debilitated and fatigued. She welcomed prayer and emotional encouragement. Provided education on the benefits of home health. She appeared to benefit from these interventions.
== END 2019-01-19 13:21 | disposition home health service (06) ==
LOC: ER 12:34 → MEDS 12:35 → ER 20:08 → MEDS 20:20 → ENPENDDIS 01-19 10:13 → MEDS 01-19 13:21
PROVIDERS: Emergency Medicine; ADMIT Internal Medicine
DX: R53.1 Weakness (principal); G92 Toxic encephalopathy; N17.9 Acute kidney failure, unspecified; E86.0 Dehydration; E83.52 Hypercalcemia; I11.0 Hypertensive heart disease with heart failure; I50.32 Chronic diastolic (congestive) heart failure; E11.9 Type 2 diabetes mellitus without complications; I25.10 Atherosclerotic heart disease of native coronary artery without angina pectoris; I48.0 Paroxysmal atrial fibrillation; I48.2 Chronic atrial fibrillation; I25.2 Old myocardial infarction; K21.9 Gastro-esophageal reflux disease without esophagitis; C50.919 Malignant neoplasm of unspecified site of unspecified female breast; C78.7 Secondary malignant neoplasm of liver and intrahepatic bile duct; F41.9 Anxiety disorder, unspecified; F32.9 Major depressive disorder, single episode, unspecified; E03.9 Hypothyroidism, unspecified; E78.5 Hyperlipidemia, unspecified; E66.9 Obesity, unspecified; Z88.8 Allergy status to other drugs, medicaments and biological substances; Z79.899 Other long term (current) drug therapy; Z79.01 Long term (current) use of anticoagulants; Z79.52 Long term (current) use of systemic steroids; Z79.84 Long term (current) use of oral hypoglycemic drugs
CPT/HCPCS: 36415; 70450; 71045; 80048; 80053; 81001; 82330; 82947; 84145; 84484; 85025; 93005; 93010; 96360; 96361; 97110; 97116; 97162; 99285-25; A9270; G0378; J7120; J7512

== ENCOUNTER → 2019-01-27 | Outpatient (CLI) | payer MEDICARE, OTHER ==
[~2019-01-27] MED LIST changes: +Anti-Diarrheal2 MG PO; +BISA5EC PO; +CALCITONIN; +DIGOX125 MCG PO; +DOCU100 PO; +ELIQUIS5 MG PO; +FAMO20 PO; +GABA300 PO; +MIRALAX17 GM PO; +OLAN10 PO; +POTCHL20ER PO; +PRED5 PO; +SENN187 PO; +TRAZ100 PO; +Tylenol325 MG PO; +VENL75ER PO
[2019-01-27 17:37] LABS: Anion Gap 6 mmol/L (6-16); Blood Urea Nitrogen 15 mg/dL (8-24); Bun/Creatinine Ratio 16.4 (12.0-20.0); CO2, Blood 24 mmol/L (21-32); Calcium, Blood 10.6 mg/dL (8.5-10.1); Chloride, Blood 104 mmol/L (98-108); Creatinine, Blood 0.92 mg/dL (0.40-1.00); Glomerular Filtration Rate >60 (60-); Glucose, Blood 112 mg/dL (70-99); Potassium, Blood 4.5 mmol/L (3.5-5.5); Sodium, Blood 134 mmol/L (136-145)
== END ==
LOC: LAB SHORT 17:05 → LAB 17:05
PROVIDERS: Internal Medicine Hematology & Oncology
DX: C50.211 Malignant neoplasm of upper-inner quadrant of right female breast (principal)
CPT/HCPCS: 80048

== ENCOUNTER → 2019-03-18 | Outpatient (CLI) | payer MEDICARE, OTHER ==
[2019-03-18 10:51] LABS: BASOPHILS ABSOLUTE AUTO 0.01 K/mm3 (0.00-0.23); BASOPHILS PERCENT AUTO 0 % (0-2); EOSINOPHILS ABSOLUTE AUTO 0.02 K/mm3 (0.00-0.68); EOSINOPHILS PERCENT AUTO 0 % (0-6); Hematocrit 33.2 % (33.0-51.0); Hemoglobin 10.6 g/dL (11.5-16.0); IMMATURE GRAN ABSOLUTE AUTO 0.04 K/mm3 (0.00-0.10); IMMATURE GRAN PERCENT AUTO 1 % (0-1); LYMPHOCYTES ABSOLUTE AUTO 0.75 K/mm3 (0.84-5.20); LYMPHOCYTES PERCENT AUTO 10 % (21-46); MONOCYTES ABSOLUTE AUTO 1.66 K/mm3 (0.16-1.47); MONOCYTES PERCENT AUTO 22 % (4-13); Mean Corpuscular HGB Conc 31.9 g/dL (31.5-36.5); Mean Corpuscular Volume 103 fL (80-100); Mean Platelet Volume 11.7 fL (9.1-12.4); NEUTROPHILS PERCENT AUTO 67 % (41-73); Platelet Count 383 K/mm3 (150-400); RDW Coefficient Variation 16.7 % (11.7-14.2); RDW Standard Deviation 62.5 fL (35.1-46.3); Red Blood Cell Count 3.21 M/mm3 (3.80-5.20); White Blood Cell Count 7.48 K/mm3 (4.00-11.30)
== END | disposition home or self-care (01) ==
LOC: LAB SHORT 10:28 → LAB 10:28
PROVIDERS: Registered Nurse Oncology
DX: C50.919 Malignant neoplasm of unspecified site of unspecified female breast (principal)
CPT/HCPCS: 85025

== ENCOUNTER 2019-04-28 12:34 | Day surgery (SDC) | payer MEDICARE, OTHER | END 2019-04-28 15:20 | disposition home or self-care (01) | LOC: ATC 12:34 | DX: C50.211 Malignant neoplasm of upper-inner quadrant of right female breast (principal); C79.51 Secondary malignant neoplasm of bone; C78.7 Secondary malignant neoplasm of liver and intrahepatic bile duct; I10 Essential (primary) hypertension; E78.00 Pure hypercholesterolemia, unspecified; E11.9 Type 2 diabetes mellitus without complications; I48.91 Unspecified atrial fibrillation; I48.92 Unspecified atrial flutter; E03.9 Hypothyroidism, unspecified; E86.0 Dehydration; J45.909 Unspecified asthma, uncomplicated; F32.9 Major depressive disorder, single episode, unspecified; Z17.0 Estrogen receptor positive status [ER+]; Z88.8 Allergy status to other drugs, medicaments and biological substances; Z51.5 Encounter for palliative care | CPT/HCPCS: 96360; J7030 ==

== ENCOUNTER 2019-05-22 15:11 | Inpatient (IN) | payer MEDICARE, OTHER ==
[~2019-05-22] VITALS: Ht 167.6 cm; Wt 90.7 kg
[2019-05-22 15:58] LABS: BASOPHILS PERCENT AUTO 0 % (0-2); EOSINOPHILS ABSOLUTE AUTO 0.01 K/mm3 (0.00-0.68); EOSINOPHILS PERCENT AUTO 0 % (0-6); Hematocrit 30.9 % (33.0-51.0); Hemoglobin 10.1 g/dL (11.5-16.0); IMMATURE GRAN ABSOLUTE AUTO 0.03 K/mm3 (0.00-0.10); IMMATURE GRAN PERCENT AUTO 1 % (0-1); LYMPHOCYTES ABSOLUTE AUTO 0.37 K/mm3 (0.84-5.20); LYMPHOCYTES PERCENT AUTO 6 % (21-46); MONOCYTES ABSOLUTE AUTO 0.01 K/mm3 (0.16-1.47); MONOCYTES PERCENT AUTO 0 % (4-13); Mean Corpuscular HGB 35.9 pg (26.0-34.0); Mean Corpuscular HGB Conc 32.7 g/dL (31.5-36.5); Mean Corpuscular Volume 110 fL (80-100); NEUTROPHILS ABSOLUTE AUTO 6.17 K/mm3 (1.96-9.15); NEUTROPHILS PERCENT AUTO 94 % (41-73); Platelet Count 99 K/mm3 (150-400); RDW Coefficient Variation 18.3 % (11.7-14.2); Red Blood Cell Count 2.81 M/mm3 (3.80-5.20); White Blood Cell Count 6.59 K/mm3 (4.00-11.30)
[2019-05-22 16:13] LABS: International Normalized Ratio 1.35; Prothrombin Time Results 13.9 Sec (9.7-11.5)
[2019-05-22 16:20] LABS: Alanine Aminotransfer (ALT/SGP 62 U/L (12-78); Albumin, Blood 2.6 g/dL (3.4-5.0); Albumin/Globulin Ratio 0.6 (0.8-1.8); Alk Phos 216 U/L (50-136); Anion Gap 8 mmol/L (6-16); Aspartate Aminotrans (AST/SGOT 197 U/L (12-37); Bilirubin, Direct 5.4 mg/dL (0.0-0.3); Bilirubin, Indirect 2.1 mg/dL (0.1-0.7); Bilirubin, Total 7.5 mg/dL (0.1-1.0); Blood Urea Nitrogen 19 mg/dL (8-24); Bun/Creatinine Ratio 26.2 (12.0-20.0); CO2, Blood 22 mmol/L (21-32); Calcium, Blood 7.6 mg/dL (8.5-10.1); Chloride, Blood 107 mmol/L (98-108); Creatinine, Blood 0.72 mg/dL (0.40-1.00); Globulin, Blood 4.3 g/dL (2.2-4.0); Glomerular Filtration Rate >60 (60-); Glucose, Blood 107 mg/dL (70-99); Potassium, Blood 4.8 mmol/L (3.5-5.5); Sodium, Blood 137 mmol/L (136-145); Total Protein, Blood 6.9 g/dL (6.4-8.2)
[2019-05-22 17:10] LABS: Source, Urine Catheter
[2019-05-22 17:12] LABS: Blood, Urine 2+ (Neg); Glucose Qualitative, Urine Neg (Neg); Ketones, Urine 1+ (Neg); Leukocyte Esterase, Urine 3+ (Neg); Nitrite, Urine Pos (Neg); Protein, Urine 2+ (Neg); Specific Gravity, Urine 1.015 (1.003-1.022); Urobilinogen, Urine 2+ (Normal)
[2019-05-22 17:25] LABS: Appearance, Urine Cloudy (Clear); Bilirubin, Urine 2+ (Neg); Color, Urine Amber (P-Yellow)
[2019-05-22 17:27] LABS: Bacteria Many /hpf; Squamous Epithelial Cells Few /hpf (Few)
[2019-05-22] MEDS ORDERED: GABA300 PO (18:22)
[2019-05-22] MEDS ORDERED: Bystolic2.5 MG PO (18:23)
--- NOTE | 2019-05-23 01:12 | NUR ---
BEGINNING SHIFT SUMMARY ASSUMED CARE OF PT AT 2020. PT WAS BROUGHT UP FROM ER. PT IS A SBA WITH WALKER, PT IS A/O, PT LIVES AT HOME ALONE, PT IS A GOOD HISTORIAN, PT HAS A LAZY EYE. HEART SOUNDS IRREGULAR, LUNG SOUNDS CLEAR BUT DIMINISHED, LACTIC ACID LEVELS CRITICAL, HOSPITALIST NOTIFIED, PT RECEIVING MAINTENCE NORMAL SALINE AT 75ML/HR. PT IS ACTIVLY GETTING CHEMO TREATMENT FOR BREAST AND LIVER CANCER, LAST TREATMENT WAS 05/13/19, ABDOMEN FIRM, DISTENDED, AND TENDER TO TOUCH, PT STATES THIS IS NOT NORMAL FOR HER. PT HAS ABD PAIN, HOSPITALIST NOTIFIED, MEDICATED PER EMAR. PT IS CURRENTLY SLEEPING, CALL LIGHT IN REACH, BED IN LOWEST POSTION, WILL CONTINUE TO MONITOR.
[2019-05-23 05:42] LABS: Hematocrit 23.9 % (33.0-51.0); Hemoglobin 7.9 g/dL (11.5-16.0); Mean Corpuscular HGB 36.1 pg (26.0-34.0); Mean Corpuscular HGB Conc 33.1 g/dL (31.5-36.5); Mean Corpuscular Volume 109 fL (80-100); Mean Platelet Volume 11.5 fL (9.1-12.4); Platelet Count 68 K/mm3 (150-400); RDW Coefficient Variation 18.3 % (11.7-14.2); RDW Standard Deviation 71.5 fL (35.1-46.3); Red Blood Cell Count 2.19 M/mm3 (3.80-5.20); White Blood Cell Count 5.68 K/mm3 (4.00-11.30)
[2019-05-23 06:01] LABS: Alanine Aminotransfer (ALT/SGP 48 U/L (12-78); Albumin/Globulin Ratio 0.6 (0.8-1.8); Alk Phos 161 U/L (50-136); Anion Gap 7 mmol/L (6-16); Aspartate Aminotrans (AST/SGOT 140 U/L (12-37); Bilirubin, Total 5.4 mg/dL (0.1-1.0); Blood Urea Nitrogen 17 mg/dL (8-24); Bun/Creatinine Ratio 27.1 (12.0-20.0); CO2, Blood 21 mmol/L (21-32); Calcium, Blood 6.9 mg/dL (8.5-10.1); Chloride, Blood 112 mmol/L (98-108); Creatinine, Blood 0.63 mg/dL (0.40-1.00); Globulin, Blood 3.3 g/dL (2.2-4.0); Glomerular Filtration Rate >60 (60-); Glucose, Blood 102 mg/dL (70-99); Potassium, Blood 4.3 mmol/L (3.5-5.5); Sodium, Blood 140 mmol/L (136-145); Total Protein, Blood 5.3 g/dL (6.4-8.2)
--- NOTE | 2019-05-23 06:15 | NUR ---
END SHIFT SUMMARY PT SLEPT T/O THE NIGHT, PT DENIES OF PAIN AT THIS TIME, IV INFUSING NS @ 75ML/HR. CALL LIGHT IN REACH, BED INLOWEST POSTION, WILL CONTINUE TO MONITOR UNTIL DAYSHIFT NURSE ARRIVES.
--- NOTE | 2019-05-23 06:21 | NUR ---
LAB VALUE PT HBG DROPPED FROM 10.1 TO 7.9 ION 12 HRS.. CHARGE NURSE NOTIFIED, STATED TO PASS TO DASHIFT DUE TO POSSIBLE DILUTION DUE TO FLUIDS IN ER.
--- NOTE | 2019-05-23 13:17 | NUR ---
PROVIDER CONTACT SPOKE WITH PROVIDER REGARDING PATIENT GENERAL APPEARANCE JAUNDICE OF SKIN AND SCLERA, PAINFUL ABDOMEN, RR APPROX 30-40 AND A VOID OF DARK BROWN URINE OF 500 ML AND ADVISED OF BILIRUBIN. PROVIDER TO REVIEW. VS OKAY BUT RESPIRATORY RATE HIGH AT TIME OF ASSESSMENT. PROVIDER AWARE.
--- NOTE | 2019-05-23 16:50 | NUR ---
pt resting review of symptoms. Pt denies headches or visual disturbance no blance issues. She denies any falls. Her ambulation is minimal. She states she lives in her own home and still drives. She has no appetite and forces herself to eat and it makes the bloating and abdominal pain worse. States her bladder us spasming all the time and feels full. Her primary care physician prescribed th ditropan pt is conderned it is making her worse. pt denies constipation and sometimes has loose stool. She rarely uses her narcotic medications but states it helps she denies using and OTC meds for pain. Pt states her night dose of lyrica helps. Review of meds and needs with nursing. Suggest modiflying her lyrica to tid dosing. They are bladder scanning her for trending on retention. Initiated discussion on plan for future needs. pt showed some sadness and frustration. She has not wanted to face making those decisions. pt hisgh fall risk pt frailty and visual and physical abilities make driving unsafe. She states she drives herself to her chemo appointments and drives home. pt high risk for readmission and failure to thrive due to lack of social support and poor nutrition and life limiting disease. kps score 60% she has online facilitator. If she needs bang catheter or looses aany more amulatory abilty 50 to 40%. will update care managers and primary care. Spoke with patient anbout future care needs for her living situation. She states she owns her home but is making payments. She has friends who help. her brothers are out of state she sent them a POA request her brother wants to see an lawn service supervisor first. Her nearest alternate decision maker is her friend Guerlinerose mary listed on her chart. She states Guerlinerose mary is aware. She want full treatment. Sanjuana completed last admit but not on chart. Will update is she does not have the form.pt plan is to continue treatment goal is improved symptom control and social plan. pt
--- NOTE | 2019-05-23 18:19 | NUR ---
SHIFT SUMMARY PATIENT A/O. PAIN BEING MANAGED THROUGH SCHEDULED AND PRN MEDICATIONS. PATIENT REATAINING URINE AND PROVIDER AWARE, INTERVENTIONS CHARTED. PATIENT CALLS APPROPRIATELY AND MAKES NEEDS KNOWN.
--- NOTE | 2019-05-23 19:03 | NUR ---
DR. PETERS URINE RETENTION SPOKE WITH DR. PETERS WHO REQUESTED STRAIGHT CATHETER TO EMPTY BLADDER 799 ML WAS POST VOID RESIDUAL. TELEPHONE ORDER REQUESTING TO D/C THE OXYBUTININ THIS MAY BE CONTRIBUTING. ORDERS ENTERED TO D/C MED AND ENTER ORDER FOR STRAIGHT CATH WITH INSTRUCTION.
--- NOTE | 2019-05-24 04:41 | NUR ---
SHIFT SUMMARY A/O, ABLE TO MAKE NEEDS KNOWN. COOPERATIVE WITH CARE. C/O PAIN TO LOWER ABDOMEN; MEDICATED PER EMAR. UP WITH 1 ASSIST TO BATHROOM. DIFFICULTY VOIDING. BLADDER SCANNED X2 THIS SHIFT EACH TIME STRAIGHT CATH INDICATED. STRAIGHT CATH X2 WITH MINIMAL RESULTS PER BLADDER SCAN. ADDRESSED WITH CLINICAL ALLERGIST; STATED IF A CALL IS PLACED TO ON-CALL PHYSICIAN TO ALERT TO SITUATION. NO OTHER ACUTE CHANGES NOTED. RESTED OFF AND ON THROUGHOUT NIGHT. VSS/AFEBRILE. WCTM. REPORT TO ONCOMING RN.
[2019-05-24 04:55] LABS: Mean Corpuscular HGB 36.2 pg (26.0-34.0); Mean Corpuscular HGB Conc 33.3 g/dL (31.5-36.5); Mean Corpuscular Volume 109 fL (80-100); Mean Platelet Volume 11.2 fL (9.1-12.4); Platelet Count 57 K/mm3 (150-400); RDW Coefficient Variation 18.3 % (11.7-14.2); RDW Standard Deviation 70.9 fL (35.1-46.3); Red Blood Cell Count 2.21 M/mm3 (3.80-5.20); White Blood Cell Count 4.35 K/mm3 (4.00-11.30)
--- NOTE | 2019-05-24 05:54 | NUR ---
0556 PHYSICIAN CORRESPONDENCE EXPLAINED DIFFICULTY TO VOID AND RETENTION WELL BLADDER SCAN/STRAIGHT CATH ORDERS. ON-CALL STATES TO CONTINUE TO MONITOR WITH BLADDER SCANS AND HAVE ATTENDING ADDRESS DURING THE DAY.
--- NOTE | 2019-05-24 07:38 | NUR ---
PROVIDER CONTACT REGARDING URINE RETENTION DR. HAQ CONTACTED REGARDING NOC SHIFT POST VOID RESIDUALS OF BLADDER SCAN. POST VOID BLADDER SCAN 500 ML AND UPON STRAIGHT CATH 200 ML OUT AND SECOND 412 ML POS VOID BLADDER SCAN AND 125 ML OUT UPON STRAIGHT CATH, REPORTED BY NOC SHIFT. PROVIDER NOTIFIED AND WISHES TO ROUND ON PATIENT.
--- NOTE | 2019-05-24 09:32 | NUR ---
STRAIGHT CATHED. PT STRAIGHT CATHED. 150 OUTPUT. PT BLADDER SCANNED AFTER CATHETERIZATION. [address] HAQ NOTIFED. BLADDER ULTRASOUND TO BE ORDERED. NO RESISTANCE FELT DURING CATHETERIZATION. WILL CONTINUE TO MONITOR.
--- NOTE | 2019-05-24 12:04 | NUR ---
PT UNABLE TO VOID PT UNABLE TO VOID PRIOR TO ULTRASOUND OF BLADDER. WILL CONTINUE TO MONITOR.
--- NOTE | 2019-05-24 14:52 | NUR ---
BLADDER SCANS/STRAIGHT CATH DC'ED AFTER REVIEWING PT BLADDER US, NO EXCESS RETENTION WAS NOTED. DR. HAQ VERBALLY DC'ED BALDDER SCANS & STRAIGHT CATHS. PELVIC ACITES SEEN BY MIXING PLANT OPERATOR. DR. HAQ AWARE.
--- NOTE | 2019-05-24 17:46 | NUR ---
SHIFT SUMMARY PATIENT A/O. PATIENT HAD AN ULTRASOUND TODAY OF RENAL W/ BLADDER D/T URINE POSSIBLE URINE RETENTION REVEALED THROUGH BLADDER SCANS. POSITIVE URINE CULTURE, ABX CONTINUE TO BE INFUSED. ABDOMEN DISTENTION AND FIRM. PAIN MANAGED THROUGH PRN MEDICATIONS. VITAL SIGNS APPEAR STABLE. LN TO CONTINUE TO MONITOR.
--- NOTE | 2019-05-24 18:36 | NUR ---
PROVIDER CONTACT REFLUX OR REGURG PROVIDER CONTACTED REGARDING REFLUX/REGURG PATIENT IS HAVING PRE/POST MEAL. NO NAUSEA/VOMITING, PROVIDER TO PLACE ORDER
--- NOTE | 2019-05-25 05:23 | NUR ---
SHIFT SUMMARY A/O, ABLE TO MAKE NEEDS KNOWN. COOPERATIVE WITH CARE. CALLS AND ANSWERS QUESTIONS APPROPRIATELY. C/O PAIN/DISCOMFORT TO R ABD X1; MEDICATED PER EMAR. NO ACUTE CHANGES NOTED OVERNIGHT. SBA TO BATHROOM; STEADY GAIT. APPEARED TO REST MUCH OF SHIFT. VOIDING LARGER AMOUNTS THIS NIGHT; URINE STILL NOEMY IN COLOR WITH TURBIDITY. VSS/AFEBRILE. WCTM. BED IN LOWEST POSITION. CALL LIGHT AND BELONGINGS WITHIN REACH. REPORT TO ONCOMING RN.
[2019-05-25] MEDS ORDERED: CEFU500T30 PO (07:52)
[2019-05-25] MEDS ORDERED: TRAM50 PO (09:18)
--- NOTE | 2019-05-25 12:56 | NUR ---
PT DISCHARGED PT DISCHARGED AT 1253. PT & FRIEND EDUCATED ON DC INSTRUCTIONS & FOLLOW UP APPOINTMENTS. HARD SCRIPT GIVEN TO PT FOR TRAMADOL. NO CHANGES IN ASSESSMENT PRIOR TO DC. PT WHEELED OUT BY ESCORT VOLUNTEER. FRIEND TO DRIVE PT HOME.
--- NOTE | 2019-05-25 15:34 | NUR ---
Review of pt with healthcare economics manager. And chaplian volunteer. pt high risk for failure to thrive. Her friend came to give her a ride home. will update doctor dumont on pt needs.
--- NOTE | 2019-05-25 17:05 | NUR ---
[facility] note: Lisbeth smiles easily, but appears a bit frail. She lives alone, but feels well loved and supported by good neighbors. She spoke in one word answers. She allowed me to pray for her at bedside. She is being discharged this afternoon. No conerns expressed. She says she is hopeful for the future.
== END 2019-05-25 12:55 | disposition home or self-care (01) | DRG 872 ==
LOC: ER 15:11 → MEDS 19:21 → ENPENDDIS 05-25 07:47 → MEDS 05-25 12:55
PROVIDERS: Nurse Practitioner Acute Care; Physician Assistant; ADMIT Internal Medicine
DX: A41.51 Sepsis due to Escherichia coli [E. coli] (principal); I48.20 Chronic atrial fibrillation, unspecified; I50.32 Chronic diastolic (congestive) heart failure; C78.7 Secondary malignant neoplasm of liver and intrahepatic bile duct; E44.0 Moderate protein-calorie malnutrition; N39.0 Urinary tract infection, site not specified; K21.9 Gastro-esophageal reflux disease without esophagitis; I25.10 Atherosclerotic heart disease of native coronary artery without angina pectoris; E83.52 Hypercalcemia; E11.9 Type 2 diabetes mellitus without complications; Z79.84 Long term (current) use of oral hypoglycemic drugs; E03.9 Hypothyroidism, unspecified; E78.00 Pure hypercholesterolemia, unspecified; Z92.21 Personal history of antineoplastic chemotherapy; I25.2 Old myocardial infarction; C50.919 Malignant neoplasm of unspecified site of unspecified female breast; N39.9 Disorder of urinary system, unspecified
CPT/HCPCS: 36415; 76705; 76770; 80048; 80053; 80076; 81001; 82947; 83605; 85025; 85027; 85610; 85730; 87040; 87077; 87086; 87186; 93005; 93010; 96361; 96365; 99284-25; J0696; J3010; J7030; J7512